=== PATIENT | female | born 1970 | race Caucasian/White ===

== ENCOUNTER → 2017-11-21 | Outpatient (CLI) | payer BC ==
[2017-11-21 23:15] LABS: Anisocytosis Slight; Basophils # (A) 0.1 k/uL (0-0.2); Basophils % (A) 1 %; Eosinophils # (A) 0.1 k/uL (0-0.7); Eosinophils % (A) 1 %; HCT 38.6 % (34.0-46.0); HGB 11.2 gm/dL (11.4-16.0); Hypochromasia Marked; Lymphocytes # (A) 1.4 k/uL (1.0-4.8); Lymphocytes % (A) 25 %; MCH 24.1 pg (25.0-35.0); MCHC 28.9 g/dL (31.0-37.0); MCV 83.2 fL (80.0-100.0); Mean Platelet Volume 9.5; Microcytosis Slight; Monocytes # (A) 0.4 k/uL (0-1.0); Monocytes % (A) 8 %; Neutrophils # (A) 3.5 k/uL (1.3-7.7); Neutrophils % (A) 64 %; Platelet Count 315 k/uL (150-450); RBC 4.65 m/uL (3.80-5.40); WBC 5.6 k/uL (3.8-10.6)
[2017-11-22 00:07] LABS: T4, Free (Free Thyroxine) 1.04 ng/dL (0.78-2.19)
[2017-11-22 00:21] LABS: ALT 20 U/L (9-52); AST 19 U/L (14-36); Albumin 4.2 g/dL (3.5-5.0); Alkaline Phosphatase 72 U/L (38-126); Anion Gap 9 mmol/L; Blood Urea Nitrogen 11 mg/dL (7-17); Calcium 9.5 mg/dL (8.4-10.2); Carbon Dioxide 28 mmol/L (22-30); Chloride 102 mmol/L (98-107); Cholesterol 156 mg/dL (<200); Glucose 101 mg/dL (74-99); HDL Cholesterol 70 mg/dL (40-60); LDL Cholesterol,Calculated 76 mg/dL (0-99); Potassium 3.6 mmol/L (3.5-5.1); Sodium 139 mmol/L (137-145); Total Bilirubin 0.8 mg/dL (0.2-1.3); Total Protein 7.2 g/dL (6.3-8.2); Triglycerides 52 mg/dL (<150)
== END | disposition home or self-care (01) ==
LOC: MMGSC 10:55
PROVIDERS: ATTEND Family Medicine
DX: Z00.00 Encounter for general adult medical examination without abnormal findings (principal); R00.0 Tachycardia, unspecified; I10 Essential (primary) hypertension
CPT/HCPCS: 36415; 80053; 80061; 84439; 84443; 85025

== ENCOUNTER → 2019-03-08 | Outpatient (CLI) | payer BC ==
--- NOTE | 2019-03-08 23:55 | CONS ---
CONSULTATION DATE OF SERVICE: 03/08/2019 48-year-old lady who has been evaluated in the sleep center for possible obstructive sleep apnea-hypopnea syndrome. HISTORY OF PRESENT ILLNESS SLEEP-WAKE EVALUATION: SLEEP SCHEDULE: Patient usual sleep schedule basically 7 days a week from 10 p.m. to 6 or 6:30 a.m. FALLING ASLEEP: She does have problems with falling asleep, has TV set in bedroom. DURING SLEEP: Sleeps in different positions with her with snoring, witnessed episodes of stopped breathing during the sleep. The patient wakes up from sleep multiple times up to around 8 times with multiple multiple times with episodes of panic attack, palpitations, sweating, restless leg, grinding teeth. DURING THE DAY/SLEEP WAKE EVALUATION: In the morning, patient wakes up tired, has problem with memory and anxiety. [place] Sleepiness Scale is 7. PAST MEDICAL HISTORY: Positive for cardiac arrhythmia, hypertension premenopausal syndrome, premenstrual syndrome. PAST SURGICAL HISTORY: Cardiac ablation, and breast implants. MEDICATIONS: Triamterene, hydrochlorothiazide, Motrin. SOCIAL HISTORY: Positive for smoking on and off totally for about 21 years, about half pack a day. Alcohol consumption occasional. FAMILY HISTORY: Hypertension, heart problems, arthritis, sinus problems, lung problems, including pneumonia, bronchitis, headaches, acid reflux, restless legs. REVIEW OF SYSTEMS: Multiple awakenings from sleep, tiredness and sleepiness sometimes during the day. PHYSICAL EXAM: GENERAL: lady without distress. VITAL SIGNS: BP 170/81, HR 81, RR 16, height 5 feet 9 inches, weight 153.2 pounds, body mass index 22.5, temperature 98.6, oxygen saturation on room air 99%. HEENT: Oropharynx extremely low position of soft palate. Mallampati IV. Neck 13 inches in circumference. Neck Supple, no JVD. Thyroid is not palpable. LUNGS Clear to percussion and to auscultation. Good air exchange. No wheezing or rhonchi. HEART S1, S2 regular. No murmurs, gallops, or rubs. ABDOMEN Soft and nontender. Bowel sounds are present. No organomegaly appreciated. EXTREMITIES No clubbing or cyanosis. OPHTHALMIC DISPENSER Awake, alert, and oriented X3. Cranial nerves 2 to 7 intact. There is no fasciculation or atrophy. noted. No focal deficits observed. IMPRESSION: 1. Snoring, witnessed episodes of stopped breathing during sleep, extremely low position of soft palate, multiple awakenings from sleep, obstructive sleep apnea- hypopnea syndrome. 2. Hypertension. 3. History of cardiac arrhythmia, status post cardiac ablation. 4. Premenstrual syndrome. 5. Status post . 6. Status post breast implants. PLAN: 1. Home sleep apnea test for evaluation of patient's breathing during the sleep following [employer] [facility] insurance. 2. Following plan after reviewing results of home sleep apnea test. 3. Sleep hygiene with regular time in bed for at least 8 hours. 4. No driving if feeling sleepiness. Thank you very much for referring this patient for consultation. Sincerely, Ronnell Martinez MD, PhD, FAASM Diplomat of [employer] [place] [employer] [facility] [place] MMODL / RENARDN: [id number] /
== END ==
LOC: SLEEP 14:34
PROVIDERS: ATTEND Internal Medicine
DX: G47.33 Obstructive sleep apnea (adult) (pediatric) (principal); I10 Essential (primary) hypertension; N94.3 Premenstrual tension syndrome; F17.210 Nicotine dependence, cigarettes, uncomplicated; Z86.79 Personal history of other diseases of the circulatory system; Z98.82 Breast implant status; Z98.890 Other specified postprocedural states; Z79.1 Long term (current) use of non-steroidal anti-inflammatories (NSAID); Z79.899 Other long term (current) drug therapy
CPT/HCPCS: 99211

== ENCOUNTER → 2024-02-09 | Outpatient (CLI) | payer BC | END | disposition home or self-care (01) | LOC: LABWHC1 09:16 | PROVIDERS: ATTEND Internal Medicine Clinical Cardiac Electrophysiology | DX: I10 Essential (primary) hypertension (principal) | CPT/HCPCS: 36415; 82533; 83835 ==

== ENCOUNTER → 2024-02-21 | Outpatient (CLI) | payer BC ==
--- NOTE | 2024-02-21 23:42 | US ---
EXAMINATION TYPE: US renal artery duplex complet DATE OF EXAM: 02/21/2024 COMPARISON: NONE CLINICAL INDICATION: Female, 53 years old with history of I10 HTN; HTN x 30 years. MEASUREMENTS: RENAL SIZE: Right Kidney: 11.1 x 6.1 x 4.5 Left Kidney: 11.0 x 4.9 x 5.5 Right Kidney: No hydronephrosis or lesions seen Left Kidney: No hydronephrosis or lesions seen Abd Aorta: Proximal segment appears ectatic. RESISTANCE INDEX Right: 0.66 Left: 0.68 RA/AO RATIO (< 3.5 ) Right: 3.0 Left: 3.4 RENAL ARTERY VELOCITY ( < 180 cm/s) Right: 216.3 cm/s Left: 248.7 cm/s [facility] Notes: Elevated velocities within mid and distal right renal artery. Elevated velocities within prox and distal left renal artery. IMPRESSION: 1. Elevated renal artery velocities. Stenosis should be considered
== END | disposition home or self-care (01) ==
LOC: RADUSWWP 06:52
PROVIDERS: ATTEND Internal Medicine Clinical Cardiac Electrophysiology
DX: I70.1 Atherosclerosis of renal artery (principal); I10 Essential (primary) hypertension
CPT/HCPCS: 93975

== ENCOUNTER → 2024-03-15 | Outpatient (CLI) | payer BC ==
--- NOTE | 2024-03-16 08:23 | CT ---
CTA abdomen and pelvis HISTORY: Uncontrollable hypertension. Rule out renal artery stenosis. COMPARISON: None. TECHNIQUE: Multiple axial images were obtained to the abdomen and pelvis before and after the unevent ful administration of nonionic IV contrast. 3-D postprocessing was performed. MIPS images were review ed. FINDINGS: Visualized lung bases are clear. On the pre-IV contrast images there are no renal calcifications. There is surgical absence of the gal lbladder. The caliber of the abdominal aorta is normal and there is no aneurysm or atherosclerotic calcificatio n. The renal artery origins are widely patent and there is no atherosclerotic plaque or stenosis. The mesenteric origins are widely patent. There are no solid renal masses or hydronephrosis. The solid visceral organs of the upper abdomen are normal. The bowel loops are normal in caliber there's no inflammation or obstruction. There is no free intraperitoneal air fluid. No pelvic mass, free fluid, abscess or adenopathy. The osseous structures are intact. IMPRESSION: 1. No renal artery stenosis. 2. No abnormality of the kidneys. 3. Cholecystectomy
== END | disposition home or self-care (01) ==
LOC: RADCTMAIN 08:02
PROVIDERS: ATTEND Internal Medicine Clinical Cardiac Electrophysiology
DX: Q27.1 Congenital renal artery stenosis (principal)
CPT/HCPCS: 74174; Q9967